=== PATIENT | female | born 1985 | race Caucasian/White ===

== ENCOUNTER 2016-06-04 08:51 | Inpatient (IN) | payer OTHER ==
[~2016-06-04] VITALS: Ht 162.6 cm; Wt 70.3 kg
[2016-06-04 10:09] LABS: HEMOGLOBIN 11.5 gm/dl (12.3-15.3); RED BLOOD COUNT 3.76 M/UL (4.00-5.10); WHITE BLOOD COUNT 12.4 K/UL (4.5-11.0)
[2016-06-05 08:34] LABS: HEMOGLOBIN 9.6 gm/dl (12.3-15.3)
== END 2016-06-06 17:25 | disposition home or self-care (01) | DRG 775 ==
LOC: GENOP 08:51 → OB 09:40
PROVIDERS: ADMIT Obstetrics & Gynecology
PROC: 10E0XZZ Delivery of Products of Conception, External Approach (ICD-10-PCS; principal; 2016-06-04)
PROC: 0UQMXZZ Repair Vulva, External Approach (ICD-10-PCS; 2016-06-04)
PROC: 0HQ9XZZ Repair Perineum Skin, External Approach (ICD-10-PCS; 2016-06-04)
PROC: 10907ZC Drainage of Amniotic Fluid, Therapeutic from Products of Conception, Via Natural or Artificial Opening (ICD-10-PCS; 2016-06-04)
DX: O70.0 First degree perineal laceration during delivery (principal); Z3A.39 39 weeks gestation of pregnancy; Z37.0 Single live birth; O99.513 Diseases of the respiratory system complicating pregnancy, third trimester; J45.909 Unspecified asthma, uncomplicated
CPT/HCPCS: 36415; 51702; 81001; 82800; 85014; 85018; 85025; J2405; J2590; J2795; J3010; J7120